=== PATIENT | male | born 1975 | race Caucasian/White ===

== ENCOUNTER 2023-12-23 19:11 | Emergency (ER) | payer OTHER, SELFPAY ==
[2023-12-23 19:23] VITALS: BP 104/69
[2023-12-23 19:39] LABS: % Basophils 0.8 % (0-2); % Eosinophils 3.4 % (0-6); % Immature Granulocytes 0.2 % (0-0.5); % Lymphocytes 35.2 % (20.5-51.1); % Monocytes 11.9 % (1.7-9.3); % Neutrophils 48.5 % (42.2-75.2); Absolute Basophils 0.1 10^3/uL (0-0.2); Absolute Eosinophils 0.2 10^3/uL (0-0.7); Absolute Lymphocytes 2.2 10^3/uL (1.2-3.4); Absolute Monocytes 0.7 10^3/uL (0.1-0.6); Hematocrit 41.2 % (39.0-52.0); Hemoglobin 14.4 g/dL (13.0-18.0); Mean Corpuscular Hgb 30.3 pg (27.0-31.0); Mean Corpuscular Volume 86.6 fL (80.0-94.0); Mean Platelet Volume 8.7 fL (7.4-10.4); Nucleated Red Blood Cells % 0 % (-); Platelet Count 267 10^3/uL (130-400); Red Blood Cell Count 4.76 10^6/uL (4.70-6.10); Red Cell Dist. Width 13.5 % (11.5-14.5); White Blood Cell Count 6.2 10^3/uL (4.8-10.8)
--- NOTE | 2023-12-23 19:39 | ED.PDOC.TRB ---
ED Provider Triage
-
Patient seen by provider in Triage?: Seen in Triage
A medical screening examination has been initiated by a qualified medical provider. Based on the assessment performed at this time, it has been determined that an emergent medical condition may exist and the patient and the patient has been
informed that further medical evaluation and npossible diagnostic testing may be needed
HPI. Patient to eD with complaint of feeling shaky, sensation of heart racing, SOB x 24 hours. Symptoms are episodic. No aggravating or alleviating factors.
General: Alert, oriented, anxious
HEENT: No abnormalities noted.
Lungs: CTA, no cough, no respiratory distress
Heart: HRR, no murmur, no edema
Neurological: AAOx3
Skin: No lesions, no rash
Musculoskeletal: Moving all extremities
EKG, labs as ordered.
[2023-12-23 19:55] LABS: ALT (SGPT) 19 U/L (0-50); AST (SGOT) 29 U/L (17-59); Albumin 4.8 g/dl (3.5-5.0); Alkaline Phosphatase 57 U/L (38-126); Blood Urea Nitrogen 26 mg/dl (9-20); Calcium 9.4 mg/dl (8.4-10.2); Carbon Dioxide 28 mmol/L (22-30); Chloride 104 mmol/L (98-107); Glucose 120 mg/dl (70-99); Magnesium 2.1 mg/dl (1.6-2.3); Potassium 4.7 mmol/L (3.5-5.1); Sodium 141 mmol/L (135-145); Total Bilirubin 0.7 mg/dl (0.2-1.3); Total Protein 7.3 g/dl (6.3-8.2); eGFR > 60.00
[2023-12-23 20:02] LABS: Troponin I 0.015 ng/ml
[2023-12-23 21:54] VITALS: BP 106/69
[2023-12-23 21:55] VITALS: BP 106/69; BMI 28.2
[2023-12-23 22:00] VITALS: BP 103/70
--- NOTE | 2023-12-23 22:49 | ED.GENMED ---
History of Present Illness
General
Chief Complaint: Heart Rate Problem
Source: patient and previous hospital records (ED visit May 2022 for somewhat similar complaint. Unremarkable workup at that time.)
Exam Limitations: none
Time Seen by Provider: 12/23/23 22:25
Nursing documentation reviewed up to this point in time: agreed with
History of Present Illness
History of Present Illness:
This is a 48-year-old gentleman who has no significant past medical history, takes no medicines on a daily basis. He presents tonight with complaints of intermittent palpitations that began yesterday. He describes a sense of his heart pounding
hard, feels that his heart is intermittently racing at times and occasionally skipping beats. Palpitations and a sense of his heart racing are more pronounced when he is sitting or lying quietly, less noticeable when he is up and about, active. He
has had some fleeting substernal chest discomfort with palpitations but again more noted when he is sitting or lying quietly. He has been asymptomatic with activity, exercise. He works outdoors in the hot humid weather. No other associated
symptoms, he denies shortness of breath, denies dizziness or lightheadedness, no sore throat, no congestion, no headache. He is unsure if he was running a fever, admits to feeling somewhat hot sporadically but has not checked his temperature. No
URI symptoms nor GI symptoms.
Evaluated in this ED May 2022 with somewhat similar complaints. Unremarkable evaluation at that time save for EKG showing occasional unifocal PVCs.
He denies significant caffeine use nor alcohol use. Denies drug use. Lifelong non-smoker. No recent travel. No leg pain or swelling.
Since arrival to the ED he is feeling improved.
Of note, patient noted a superficial scratch to dorsal right hand, third MCP joint a few days ago and then yesterday morning noticed local swelling and redness to his third MCP joint of right hand. No specific interventions and pain and swelling
has markedly improved today, near resolved. No history of similar joint swelling. He denies history of gout/pseudogout/osteoarthritis.
Past History
Past History
ED Past Medical History: None
ED Past Surgical History: None
Social History
Tobacco: Non-smoker
Alcohol: Occasional (Rare alcohol use)
Drug: None
Personal:
Living: with family
Employment: Employed (Self-employed)
Family History
Family History: Negative Early CAD, CAD or Sudden
Phy Exam
Physical Exam
Physical Exam:
GENERAL: Alert , in no apparent distress. 48-year-old gentleman appears his stated age, bright and alert, pleasant, appears in no acute distress.
EYE: anicteric
NECK: Supple, nontender, no meningismus, no significant adenopathy.
ENT: oral mucosa is moist. No rhinorrhea.
CARDIAC: Regular rate and rhythm at 60. no murmur. No rub.
LUNGS: Clear breath sounds bilaterally, no acute respiratory distress, no wheezes/rales/rhonchi
ABDOMEN: Soft, nondistended, without focal tenderness, normoactive BS.
NEUROLOGICAL: Alert and oriented x3, no focal neuro deficits. Gait is altamirano and steady.
SKIN: Warm and dry, normal color, there is a subacute near healed superficial linear abrasion to centimeters in length dorsal aspect of the third MCP joint. There is very minimal local erythema and minimal soft tissue swelling without palpable
tenderness, no fluctuance. Full digit/hand range of motion without difficulty nor pain. No lymphangitis.
MUSCULOSKELETAL: No clubbing or cyanosis or peripheral edema. Peripheral pulses are full and equal b/l. No palpable tenderness.
PSYCH: Normal and appropriate interaction.
Course
Orders/Labs/Results
Orders:
Orders
12/23/23 19:13
Electrocardiogram (*1) Urgent
Reason for Study: Chest Pain
EKG- Treatment ONCE
12/23/23 19:25
CR Chest - 2 Views Urgent
Comment:
Reason For Exam: heart rate
12/23/23 19:34
Complete Blood Count/With Diff Urgent
Comprehensive Metabolic Panel Urgent
Magnesium Urgent
TSH Reflex To Free T4 Urgent
Troponin I Urgent
Abnormal Lab Results
12/23/23
19:34
Absolute Monos (auto) 0.7 H 10^3/uL
(0.1-0.6)
Monocytes % 11.9 H %
(1.7-9.3)
BUN 26 H mg/dl
(9-20)
Glucose 120 H mg/dl
(70-99)
12/23/23 19:34
12/23/23 19:34
Vital Signs
Initial and Last Documented VS:
Initial Vital Signs
Temp Pulse Resp BP Pulse Ox
98.3 F 70 18 104/69 99
12/23/23 19:23 12/23/23 19:23 12/23/23 19:23 12/23/23 19:23 12/23/23 19:23
Last Documented Vital Signs
Temp Pulse Resp BP Pulse Ox
98.3 F 55 18 106/69 100
12/23/23 19:23 12/23/23 21:55 12/23/23 21:55 12/23/23 21:55 12/23/23 21:55
MDM/Problems Addressed
Differential Diagnosis Includes:
Concern for tachy-arrhythmia, ACS, thyroid disorder, electrolyte abnormality.
Reassuring that patient has been asymptomatic with physical activity.
He does work outdoors and current weather situation has been quite hot and humid.
EKG is unremarkable and monitor shows normal sinus rhythm to sinus bradycardia with rare unifocal PVCs.
He remains hemodynamically stable.
Labs are unremarkable save for mildly elevated BUN of 26 which has trended up from previous. I suspect an element of mild dehydration. TSH is normal. Troponin is negative. With ongoing symptoms since yesterday, unremarkable troponin, ACS is
unlikely.
No risk factors for thromboembolism.
Patient also
Notes some local swelling, redness dorsal aspect of right third MCP joint at sites of superficial abrasion. There is very minimal erythema, minimal soft tissue swelling but he admits that overall this is markedly improved from yesterday morning.
Focal cellulitis is unlikely especially as overall improved. He may have an element of focal inflammatory arthropathy but again overall improved. Recommend supportive measures, NSAID versus Tylenol, bacitracin to superficial abrasion.
Discussed importance of remaining well-hydrated on a daily basis and to increase clear liquids over the next several days for what appears to be very mild dehydration which may be cause for his symptoms.
Follow-up with PCP for recheck and patient has been referred to our chest pain hotline as well.
Return precautions discussed.
*Radiology
Radiology exam reviewed: radiology read reviewed (Chest x-ray is unremarkable.)
*Pulse Oximetry
Patient hypoxic: no
*EKG
Interpreted by ED Provider?: Yes
Interpretation: normal
Comparison EKG: no changes (Unchanged from previous May 2022 save for unifocal PVC has resolved.)
Rate: normal
Rhythm: sinus
[place]: normal axis
Interval: normal interval
QRS Pattern: normal QRS
Ischemia: no ischemia
*Orthopaedic Technologist Interpretation
Rate: normal
Interpretation: normal
Rhythm: sinus and other (Rare unifocal PVCs are noted)
*Critical Care Note
Total Time (30-74mins, 75-104mins- exclusive of procedures): Not Applicable
ED Attending Note
-
Portions of this chart may have been created with voice recognition software.� Occasional wrong word or��sound alike� substitutions may have occurred due to the inherent limitations of voice recognition software.
Discharge Plan
Departure
Patient Disposition: Home (Routine Discharge)
Date of Disposition: 12/23/23
Time of Disposition: 22:49
Patient with high blood pressure during this ER visit?: No
Condition: Good
Discharge Problem:
Intermittent palpitations, Nonspecific chest pain
Instructions: Palpitations (DC), Dehydration, Adult ED, Chest Pain CBC Follow Up
Prescriptions:
No Action
metoprolol succinate [Toprol XL] 25 mg tablet extended release 24 hr
12.5 mg PO HS Qty: 30 0RF
Referrals:
Rose Marie Abad PA-C [Family Provider] - Call in 1-3 days for appt
Interventions
Interventions:
*Risk Screen - Suicide Last Done: 12/23/23 19:23
*General Assessment Last Done: 12/23/23 19:23
*Neglect/Abuse Screening Last Done: 12/23/23 19:23
ED- Cardiac Assessment Last Done: 12/23/23 21:59
ED- Pulmonary Assessment Last Done: 12/23/23 21:59
Discharge Date and Time
Print Language: TURKISH
[2023-12-23 23:00] VITALS: BP 108/70
== END 2023-12-23 23:11 | disposition home or self-care (01) ==
LOC: EMR 19:11
PROVIDERS: Emergency Medicine; EMERGENCY PHYSICIAN Emergency Medicine; FAMILY PHYSICIAN Physician Assistant
DX: R00.2 Palpitations (principal); R07.89 Other chest pain; I49.3 Ventricular premature depolarization
CPT/HCPCS: 99283; 71046; 80053; 83735; 84443; 84484; 85025; 93005

== ENCOUNTER 2024-06-14 16:18 | Emergency (ER) | payer OTHER, SELFPAY ==
[2024-06-14 16:45] VITALS: BP 106/65
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
== END 2024-06-14 18:49 | disposition left against medical advice (07) ==
LOC: EMR 16:18
PROVIDERS: EMERGENCY PHYSICIAN Emergency Medicine; FAMILY PHYSICIAN Family Medicine
DX: S00.90XA Unspecified superficial injury of unspecified part of head, initial encounter (principal); S00.01XA Abrasion of scalp, initial encounter; W20.8XXA Other cause of strike by thrown, projected or falling object, initial encounter; Z53.21 Procedure and treatment not carried out due to patient leaving prior to being seen by health care provider
CPT/HCPCS: 99282